=== PATIENT | female | born 1955 | race Caucasian/White ===

== ENCOUNTER 2016-07-21 13:27 | Emergency (ER) | payer MEDICARE ==
[2016-07-21 15:10] LABS: HEMOGLOBIN 13.6 gm/dl (12.3-15.3); RED BLOOD COUNT 4.33 M/UL (4.00-5.10); WHITE BLOOD COUNT 8.5 K/UL (4.5-11.0)
== END 2016-07-21 16:15 | disposition home or self-care (01) ==
LOC: ER1 13:27
PROVIDERS: Physician Assistant
DX: N76.4 Abscess of vulva (principal); F17.210 Nicotine dependence, cigarettes, uncomplicated; Z90.49 Acquired absence of other specified parts of digestive tract
CPT/HCPCS: 36415; 85025; 99282

== ENCOUNTER 2021-08-13 15:12 | Emergency (ER) | payer MEDICARE ==
[~2021-08-13 15:12] MED LIST: BACTROBAN OINT22 GM EXT; IBUPROFEN600 MG PO; IMODIUM CAP 2 MG2 MG PO; NORCO 5-325 TA1 EACH PO; ZOFRAN ODT 4 MG4 MG PO
[2021-08-13 16:23] LABS: HEMOGLOBIN 15.4 gm/dl (12.3-15.3); RED BLOOD COUNT 5.04 M/UL (4.00-5.10); WHITE BLOOD COUNT 10.1 K/UL (4.5-11.0)
[2021-08-13 16:42] LABS: BUN/CREATININE RATIO 19 (0-10)
[2021-08-13] MEDS ORDERED: TAMIFLU75 MG PO (18:41)
[2021-08-13] MEDS ORDERED: ASPIRIN81 MG PO (18:41)
== END 2021-08-13 19:15 | disposition home or self-care (01) ==
LOC: ER1 15:12
PROVIDERS: Emergency Medicine
DX: J10.1 Influenza due to other identified influenza virus with other respiratory manifestations (principal); E87.1 Hypo-osmolality and hyponatremia; R07.9 Chest pain, unspecified; Z20.822 Contact with and (suspected) exposure to COVID-19; E11.9 Type 2 diabetes mellitus without complications; I10 Essential (primary) hypertension; F17.200 Nicotine dependence, unspecified, uncomplicated
CPT/HCPCS: 0240U; 36600; 71045; 80053; 81001; 82550; 82553; 82803; 83605; 83880; 84484; 85025; 87040; 93005; 96374; 99285; J0692

== ENCOUNTER 2021-10-20 14:46 | Inpatient (IN) | payer MEDICARE ==
[~2021-10-20] VITALS: Ht 162.6 cm; Wt 67.1 kg
[~2021-10-20 14:46] MED LIST changes: +ASPIRIN81 MG PO; +TAMIFLU75 MG PO
[2021-10-20 16:15] LABS: RED BLOOD COUNT 4.34 M/UL (4.00-5.10)
[2021-10-20 16:32] LABS: BUN/CREATININE RATIO 18 (0-10)
[2021-10-20] MEDS ORDERED: IBUPROFEN600 MG PO (18:09)
[2021-10-20] MEDS ORDERED: GABAPENTIN100 MG PO (18:11)
[2021-10-20] MEDS ORDERED: CYCLOBENZAPRINE5 MG PO (18:11)
[2021-10-20] MEDS ORDERED: AMLODIPINE BESYL5 MG PO (18:12)
[2021-10-20] MEDS ORDERED: OMEPRAZOLE20 MG PO (18:12)
[2021-10-20] MEDS ORDERED: ACETAMINOPHEN-1 EAC1 PO (18:13)
[2021-10-20] MEDS ORDERED: VITAMIN D325 MCG PO (18:13)
[2021-10-20] MEDS ORDERED: SERTRALINE HCL50 MG PO (18:14)
[2021-10-20] MEDS ORDERED: HUMULIN 70100 UNIT/2 SC (18:25)
[2021-10-20] MEDS ORDERED: IPRAT-ALBUT 0.5-3 ML INH (18:38)
[2021-10-21 02:19] LABS: HEMOGLOBIN 12.1 gm/dl (12.3-15.3); RED BLOOD COUNT 4.12 M/UL (4.00-5.10); WHITE BLOOD COUNT 10.1 K/UL (4.5-11.0)
[2021-10-21 02:44] LABS: BUN/CREATININE RATIO 15 (0-10)
== END 2021-10-22 18:31 | disposition home or self-care (01) | DRG 300 ==
LOC: ER1 14:46 → M/S 17:01 → CDU 17:01 → M/S 19:47
PROVIDERS: Physician Assistant; ADMIT Internal Medicine
DX: E11.52 Type 2 diabetes mellitus with diabetic peripheral angiopathy with gangrene (principal); L02.612 Cutaneous abscess of left foot; L03.116 Cellulitis of left lower limb; E11.621 Type 2 diabetes mellitus with foot ulcer; Z20.822 Contact with and (suspected) exposure to COVID-19; E11.40 Type 2 diabetes mellitus with diabetic neuropathy, unspecified; F17.210 Nicotine dependence, cigarettes, uncomplicated; I10 Essential (primary) hypertension; E87.6 Hypokalemia; E11.628 Type 2 diabetes mellitus with other skin complications; E83.42 Hypomagnesemia; E78.00 Pure hypercholesterolemia, unspecified; Z79.4 Long term (current) use of insulin; Z98.51 Tubal ligation status
CPT/HCPCS: 36415; 73630; 73718; 80048; 80053; 80202; 82962; 83036; 83605; 83735; 84132; 85025; 85652; 86140; 87040; 87070; 87205; 93925; 96365; 96366; 96375; 99285; J1650; J2543; J2795; J3370; J3475; J7030; J7070

== ENCOUNTER → 2021-12-27 | Outpatient (CLI) | payer MEDICARE ==
[~2021-12-27] MED LIST changes: +ACETAMINOPHEN-1 EAC1 PO; +AMLODIPINE BESYL5 MG PO; +CYCLOBENZAPRINE5 MG PO; +GABAPENTIN100 MG PO; +HUMULIN 70100 UNIT/2 SC; +IPRAT-ALBUT 0.5-3 ML INH; +OMEPRAZOLE20 MG PO; +SERTRALINE HCL50 MG PO; +VITAMIN D325 MCG PO
== END ==
LOC: CT 12-19 09:30
DX: R91.8 Other nonspecific abnormal finding of lung field (principal); D51.0 Vitamin B12 deficiency anemia due to intrinsic factor deficiency; K44.9 Diaphragmatic hernia without obstruction or gangrene; J84.10 Pulmonary fibrosis, unspecified
CPT/HCPCS: 36415; 71260; 82565; Q9967